=== PATIENT | female | born 1955 | race Hispanic/Latino ===

== ENCOUNTER 2020-01-03 13:15 | Emergency (ER) | payer SELFPAY ==
[~2020-01-03] VITALS: Ht 149.9 cm; Wt 77.6 kg
[2020-01-03] MEDS ORDERED: SODIUM CHLORIDE 0.9% 1000ML 1,000 ML IV STA (13:40)
[2020-01-03] MEDS ORDERED: MORPHINE SULFATE INJ 4 MG/ML INJ 1ML IV STA (13:40)
[2020-01-03] MEDS ORDERED: ONDANSETRON HCL INJ 2MG/ML 2ML 2 MG/ML VIAL IV STA (13:40)
[2020-01-03 14:18] LABS: BASOPHILS # (AUTO) 0.1 (0.0-0.1); BASOPHILS % 0.7 % (0.0-1.0); EOSINOPHILS # (AUTO) 0.2 (0.0-0.4); EOSINOPHILS % 1.8 % (0.0-6.0); HEMATOCRIT 42.4 % (34.2-44.1); HEMOGLOBIN 14.2 g/dL (12.0-16.0); LYMPHOCYTES # (AUTO) 1.9 (1.0-3.2); LYMPHOCYTES % 20.3 % (18.0-39.1); MEAN CORPUSCULAR HEMOGLOBIN 30.6 pg (28-32); MEAN CORPUSCULAR HGB CONC 33.5 g/dL (31-35); MEAN CORPUSCULAR VOLUME 91.4 fL (81-99); MONOCYTES # (AUTO) 0.6 (0.2-0.8); MONOCYTES % 6.2 % (4.4-11.3); NEUTROPHILS # (AUTO) 6.7 (2.1-6.9); NEUTROPHILS % 70.6 % (38.7-80.0); PLATELET COUNT 243 x10e3/uL (140-360); RED BLOOD COUNT 4.64 x10e6/uL (3.6-5.1)
[2020-01-03 14:24] LABS: BILIRUBIN,URINE NEGATIVE (NEGATIVE); CLARITY,URINE SL CLOUDY (CLEAR); COLOR,URINE YELLOW (YELLOW); KETONES,URINE NEGATIVE (NEGATIVE); LEUKOCYTE ESTERASE ,URINE NEGATIVE (NEGATIVE); NITRITE,URINE NEGATIVE (NEGATIVE); PROTEIN,URINE DIPSTICK NEGATIVE (NEGATIVE); URINE UROBILINOGEN 0.2 mg/dL (0.2 - 1)
[2020-01-03 14:32] LABS: INR 0.79; PROTHROMBIN TIME 11.4 seconds (11.9-14.5)
[2020-01-03 14:33] LABS: ALANINE AMINOTRANSFERASE 43 IU/L (0-55); ALBUMIN 3.9 g/dL (3.5-5.0); ALKALINE PHOSPHATASE 96 IU/L (40-150); ANION GAP 14.9 mmol/L (8-16); BLOOD UREA NITROGEN 13 mg/dL (7-26); BUN/CREATININE RATIO 16 (6-25); CALCIUM 9.8 mg/dL (8.4-10.2); CARBON DIOXIDE 26 mmol/L (22-29); CHLORIDE 102 mmol/L (98-107); CREATINE KINASE 105 IU/L (29-168); CREATININE, SERUM 0.83 mg/dL (0.57-1.11); EST GLOMERULAR FILTRATION RATE > 60 ML/MIN (60-); GLUCOSE 232 mg/dL (74-118); POTASSIUM 3.9 mmol/L (3.5-5.1); SODIUM 139 mmol/L (136-145)
[2020-01-03 14:36] LABS: PARTIAL THROMBOPLASTIN TIME 22.3 seconds (23.8-35.5)
[2020-01-03] MEDS ORDERED: DIATRIZOATE MEGL/DIATRIZOA SOD 30 ML BTL PO ONE (14:39)
[2020-01-03 14:41] LABS: BACTERIA,URINE MODERATE /HPF; EPITHELIAL CELLS,URINE MANY /LPF; TRANSITIONAL EPI CELLS,URINE FEW; WBC,URINE (MAN) 0-5 /HPF (0-5)
--- NOTE | 2020-01-03 15:44 | Emergency Department Note ---
History of Present Illnes History of Present Illness Chief Complaint: Abdominal Complaints History of Present Illness This is a 64 year old female PATIENT WENT TO URGENT CARE WITH COMPLAINTS OF RIGHT LOWER ABDOMINAL PAIN OFF AND ON X 3 DAYS, TOLD TO GO TO ER, PAIN WORSE TODAY; DENIES NAUSEA, VOMITING, OR DIARRHEA. PATIENT APPEARS UNCOMFORTABLE, RATES PAIN 6/10. 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 Any updates have been documented here. Past Medical History Recent Fever: No Clinical Suspicion of Infectio: No New/Unexplained Change in Ment: No Past Medical History: Hypertension Past Surgical History: Cholecysctectomy Social History Smoking Cessation: Never Smoker Counseling Performed: No Alcohol Use: None Any Illegal Drug Use: No Physically hurt or threatened: No Other Any Pre-Existing Lines (PICC,: No Review of Systems Review of Systems Constitutional: Reports no symptoms EENTM: Reports no symptoms Cardiovascular: Reports no symptoms Respiratory: Reports no symptoms Gastrointestinal: Reports as per HPI Genitourinary: Reports no symptoms Musculoskeletal: Reports no symptoms Integumentary: Reports no symptoms Neurological: Reports no symptoms Psychological: Reports no symptoms Endocrine: Reports no symptoms Hematological/Lymphatic: Reports no symptoms Physical Exam Related Data Allergies: Coded Allergies: No Known Allergies (Unverified , 01/03/20) Triage Vital Signs Vital Signs Date Time Temp Pulse Resp B/P (MAP) Pulse Ox O2 Delivery O2 Flow Rate FiO2 01/03/20 13:29 98.3 88 18 138/67 100 Room Air Vital signs reviewed: Yes Physical Exam CONSTITUTIONAL Constitutional: Present well-developed, Present well-nourished, Present obese HENT HENT: Present normocephalic, Present atraumatic, Present oropharynx clear/moist, Present nose normal HENT L/R: Present left ext ear normal, Present right ext ear normal EYES Eyes: Reports PERRL, Reports conjunctivae normal NECK Neck: Present ROM normal PULMONARY Pulmonary: Present effort normal, Present breath sounds normal CARDIOVASCULAR Cardiovascular: Present regular rhythm, Present heart sounds normal, Present capillary refill normal, Present normal rate GASTROINTESTINAL Abdominal: Present soft, Present bowel sounds normal, Present tender (MODERATE TENDERNESS RLQ WITHOUT R/G) GENITOURINARY Genitourinary: Present exam deferred SKIN Skin: Present warm, Present dry MUSCULOSKELETAL Musculoskeletal: Present ROM normal NEUROLOGICAL Neurological: Present alert, Present oriented x 3, Present no gross motor or sensory deficits PSYCHOLOGICAL Psychological: Present mood/affect normal, Present judgement normal Results Laboratory Result Diagram: 01/03/20 1340 01/03/20 1340 Laboratory Laboratory Tests Test 01/03/20 13:40 White Blood Count 9.45 x10e3/uL (4.8-10.8) Red Blood Count 4.64 x10e6/uL (3.6-5.1) Hemoglobin 14.2 g/dL (12.0-16.0) Hematocrit 42.4 % (34.2-44.1) Mean Corpuscular Volume 91.4 fL (81-99) Mean Corpuscular Hemoglobin 30.6 pg (28-32) Mean Corpuscular Hemoglobin Concent 33.5 g/dL (31-35) Red Cell Distribution Width 13.0 % (11.7-14.4) Platelet Count 243 x10e3/uL (140-360) Neutrophils (%) (Auto) 70.6 % (38.7-80.0) Lymphocytes (%) (Auto) 20.3 % (18.0-39.1) Monocytes (%) (Auto) 6.2 % (4.4-11.3) Eosinophils (%) (Auto) 1.8 % (0.0-6.0) Basophils (%) (Auto) 0.7 % (0.0-1.0) Neutrophils # (Auto) 6.7 (2.1-6.9) Lymphocytes # (Auto) 1.9 (1.0-3.2) Monocytes # (Auto) 0.6 (0.2-0.8) Eosinophils # (Auto) 0.2 (0.0-0.4) Basophils # (Auto) 0.1 (0.0-0.1) Absolute Immature Granulocyte (auto 0.04 x10e3/uL (0-0.1) Prothrombin Time 11.4 seconds (11.9-14.5) Prothromb Time International Ratio 0.79 Activated Partial Thromboplast Time 22.3 seconds (23.8-35.5) Urine Color Yellow (YELLOW) Urine Clarity Sl cloudy (CLEAR) Urine pH 5.5 (5 - 7) Urine Specific [place] 1.025 (1.010-1.025) Urine Protein Negative (NEGATIVE) Urine Glucose (UA) 1+ (NEGATIVE) Urine Ketones Negative (NEGATIVE) Urine Blood Negative (NEGATIVE) Urine Nitrite Negative (NEGATIVE) Urine Bilirubin Negative (NEGATIVE) Urine Urobilinogen 0.2 mg/dL (0.2 - 1) Urine Leukocyte Esterase Negative (NEGATIVE) Urine RBC None /HPF (0-5) Urine WBC 0-5 /HPF (0-5) Urine Epithelial Cells Many /LPF (NONE) Urine Transitional Epithelial Cells Few (NONE) Urine Bacteria Moderate /HPF (NONE) Sodium Level 139 mmol/L (136-145) Potassium Level 3.9 mmol/L (3.5-5.1) Chloride Level 102 mmol/L (98-107) Carbon Dioxide Level 26 mmol/L (22-29) Anion Gap 14.9 mmol/L (8-16) Blood Urea Nitrogen 13 mg/dL (7-26) Creatinine 0.83 mg/dL (0.57-1.11) Estimat Glomerular Filtration Rate > 60 ML/MIN (60-) BUN/Creatinine Ratio 16 (6-25) Glucose Level 232 mg/dL (74-118) Calcium Level 9.8 mg/dL (8.4-10.2) Total Bilirubin 0.5 mg/dL (0.2-1.2) Aspartate Amino Transf (AST/SGOT) 30 IU/L (5-34) Alanine Aminotransferase (ALT/SGPT) 43 IU/L (0-55) Alkaline Phosphatase 96 IU/L (40-150) Creatine Kinase 105 IU/L (29-168) Creatine Kinase MB 1.20 ng/mL (0-5.0) Troponin I < 0.001 ng/mL (0-0.300) Total Protein 7.9 g/dL (6.5-8.1) Albumin 3.9 g/dL (3.5-5.0) Globulin 4.0 g/dL (2.3-3.5) Albumin/Globulin Ratio 1.0 (0.8-2.0) Lab results reviewed: Yes Imaging Imaging results reviewed: Yes Assessment & Plan Medical Decision Making MDM CHECK CBC, CHEM, CARDIACS, UA/CX, CT ABD/PELVIS - R/O APPENDICITIS, KIDNEY STONE, DIVERTICULITIS, SBO, CONSTIPATION, RENAL INSUFF, ELECTROLYTE ABNL, UTI Reassessment Reassessment PT IMPROVED, CT NEGATIVE, DC HOME, F/U PCP Assessment & Plan Final Impression: (1) Abdominal pain Depart Disposition: HOME, SELF-CARE Last Vital Signs Date Time Temp Pulse Resp B/P (MAP) Pulse Ox O2 Delivery O2 Flow Rate FiO2 01/03/20 13:29 98.3 88 18 138/67 100 Room Air Medications in the ED Morphine Sulfate 4 mg ONCE STAT IV ; Start 01/03/20 at 13:40; Stop 01/03/20 at 13:54; Status DC Ondansetron HCl 4 mg ONCE STAT IV ; Start 01/03/20 at 13:40; Stop 01/03/20 at 13:54; Status DC Sodium Chloride 1,000 ml @ 0 mls/hr Q0M STAT IV ; Start 01/03/20 at 13:40; Stop 01/03/20 at 13:43; Status DC Diatrizoate Meglum/ Diatrizoate Sod 30 ml STK-MED ONCE PO ; Start 01/03/20 at 14:39; Stop 01/03/20 at 14:32; Status DC SUSANA VALLEJO MD Jan 03, 2020 15:44
--- NOTE | 2020-01-03 15:52 | Diagnostic Imaging Report ---
EXAM: CT Abdomen and Pelvis WITH intravenous contrast INDICATION: Abdominal pain COMPARISON: None. TECHNIQUE: Abdomen and pelvis were scanned utilizing a multidetector helical scanner from the lung base to the pubic symphysis after administration of IV contrast. Coronal and sagittal reformations were obtained. Routine protocol was performed. Scan was performed during portal venous phase. IV CONTRAST: 100mL of Isovue 370 ORAL CONTRAST: Gastrografin RADIATION DOSE: Total DLP: 671 mGy*cm Dose modulation, iterative reconstruction, and/or weight based adjustment of the mA/kV was utilized to reduce the radiation dose to as low as reasonably achievable. FINDINGS: LOWER THORAX: Normal. HEPATOBILIARY: Diffuse hepatic steatosis. No focal hepatic lesions. No biliary ductal dilatation. Status post cholecystectomy. SPLEEN: No splenomegaly. PANCREAS: No focal masses or ductal dilatation. ADRENALS: No adrenal nodules. KIDNEYS/URETERS: No hydronephrosis, stones, or solid mass lesions. PELVIC ORGANS/BLADDER: Unremarkable. PERITONEUM / RETROPERITONEUM: No free air or fluid. LYMPH NODES: No lymphadenopathy. VESSELS: Mild scattered atherosclerotic calcifications. GI TRACT: Diverticulosis without CT evidence of diverticulitis. No abnormal bowel thickening. No bowel obstruction. Normal appendix. BONES AND SOFT TISSUES: No acute osseous injury. IMPRESSION: No acute findings in the abdomen or pelvis. Specifically, normal appendix. Diffuse hepatic steatosis. Signed by: Gayathri Jimenez MD on 01/03/2020 3:48 PM
[2020-01-03] MEDS ORDERED: SODIUM CHLORIDE 0.9% 50ML 50 ML ONE (16:13)
[2020-01-03] MEDS ORDERED: IOPAMIDOL 370 MG/ML 200 ML INFUS..BTL INJ ONE (16:13)
[2020-01-03 17:07] VITALS: BP 110/65
--- OUTSIDE RECORDS SUMMARY | 2020-01-20 11:23 | XMS REPORT | Continuity of Care Document ---
Author Author [facility] t Organization [facility] Address [address] [place] [address] Phone Unavailable Care Team Providers Care Wheel And Caster Repairer Name Role Phone NONSTAFF PCP Unavailable SWEET, A LAIRD Attphys Unavailable Payers Payer Name Policy Type Policy Number Effective Date Expiration Date S ource Problems Condition Name Condition Details Condition Category Status Onset Date Resolution Date Last Treatment Date Treating Clinician Comments Source Essential hypertension, benign Essential hypertension, benign Disea se Active 2017-04-01 00:00:00 [facility]alth Refused influenza vaccine Refused influenza vaccine Disease Ac tive 2017-04-01 00:00:00 [facility] Borderline diabetes Borderline diabetes Disease Active 2017-04-01 00:00 :00 [facility] Problem Condition Active [facility] Allergies, Adverse Reactions, Alerts Allergy Name Allergy Type Status Severity Reaction(s) Onset Date Inacti ve Date Treating Clinician Comments Source No Known Allergies DA Active U 2018-04-18 00:00:00 [facility] No Known Allergies DA Active U 2016-12-25 00:00:00 [facility] Social History Social Habit Start Date Stop Date Quantity Comments Source Sex Assigned At [facility] Alcohol intake 2018-11-24 00:00:00 2018-11-24 00:00:00 Current drinker of alcohol (finding) [facility] History SDOH Food Worry 2017-04-01 00:00:00 2017-04-01 00:00:00 1 [facility] History SDOH Food Scarcity 2017-04-01 00:00:00 2017-04-01 00:00:00 1 [facility] Alcohol Comment 2017-04-01 00:00:00 2017-04-01 00:00:00 2 or 3 B udlights only when goes out [facility] Smoking Status Start Date Stop Date Source Never smoker [facility] Medications Ordered Medication Name Filled Medication Name Start Date Stop Da te Current Medication? Ordering Clinician Indication Dosage Frequency Signature (SIG) Comments Components Source glipiZIDE (GLUCOTROL) 5 mg tablet 2017-04-01 00:00:00 Yes Borderline diabetes 5mg Q.5D Take 1 tablet by mouth 2 times daily (before me als). [facility] lisinopril-hydrochlorothiazide (ZESTORETIC) 20-12.5 mg per t ablet 2017-04-01 00:00:00 Yes Essential hypertension, benign 1{tbl} QD Take 1 tablet by mouth daily. [facility] ibuprofen (MOTRIN) 600 mg tablet 2017-04-01 00:00:00 Yes 600mg Take 1 tablet by mouth every 8 hours as needed for Pain. [facility] Immunizations Ordered Immunization Name Filled Immunization Name Date Status Comments Source Tdap (Tetanus Toxoid, Reduced Diphtheria Toxoid And Acellular Pertussis, Absorbed) 2017-04-01 00:00:00 Completed [facility] Vital Signs Vital Name Observation Time Observation Value Comments Source Body Temperature 2020-01-03 17:07:00 98.4 [degF] [facility] Weight 2020-01-03 13:29:00 171 [lb_av] [facility] BMI (Body Mass Index) 2020-01-03 13:29:00 34.5 kg/m2 [facility] Procedures Procedure Date / Time Performed Performing Clinician Pio e Computed tomography of abdomen and pelvis with contrast 00:00:00 [facility] Plan of Care Planned Activity Planned Date Details Comments Source Future Scheduled Test 2020-03-22 00:00:00 IMM Influenza Seas onal Mar to August (>/= 19 yrs) [code = IMM Influenza Seasonal Mar to August (>/= 19 yrs)] [facility] Future Scheduled Test 2018-04-24 00:00:00 Breast Cancer Scrn (Yearly) [code = Breast Cancer Scrn (Yearly)] [facility] Scheduled Test 2018-04-03 00:00:00 Screening for derrek gnant neoplasm of colon (procedure) [code = 926736346] [facility] Scheduled Test 1978 00:00:00 Screening for derrek gnant neoplasm of cervix (procedure) [code = 288289105] [facility] Abdominal Pain - Adult [facility] Encounters Start Date/Time End Date/Time Encounter Type Admission Type [facility] Care Department Encounter ID Source 2020-01-03 13:44:00 2020-01-03 17:10:00 Departed Emergency Room 1 SUSANA VALLEJO [facility] [id number] [facility] 2017-04-24 11:12:13 2017-04-24 11:12:[address] [facility] [id number] [facility] 2017-04-23 00:00:00 2017-04-23 00:00:[address] [facility] [id number] [facility] 2017-04-13 00:00:00 2017-04-13 00:00:[address] [facility] [id number] [facility] 2017-04-08 00:00:00 2017-04-08 00:00:[address] [facility] [id number] [facility] 2017-04-03 08:55:57 2017-04-03 08:55:[address] [facility] [id number] [facility] 2017-04-01 13:23:23 2017-04-01 13:23:[address] [facility] [id number] [facility] Results Test Description Test Time Test Comments Results Result Comments Source CT ABDOMEN/PELVIS W 2020-01-03 15:46:00 [facility] [address] [place] [address] Patient Name: LOURDES KHAN MR #: [id number] : 1955 Age/Sex: 64/F Req #: [id number] Adm Physician: Ordered by: SUSANA VALLEJO MD Report #: [id number] Location: ER Room/Bed: Procedure: [id number] CT/CT ABDOMEN/PELVIS W Exam Date: 01/03/20 Exam Time: 1510 REPORT STATUS: Signed EXAM: CT Abdomen and Pelvis WITH intravenous contrast INDICATION: Abdominal pain COMPARISON: None. TECHNIQUE: Abdomen and pelvis were scanned utilizing a multidetector helical scanner from the lung base to the pubic symphysis after administration of IV contrast. Coronal and sagittal reformations were obtained. Routine protocol was performed. Scan was performed during portal venous phase. IV CONTRAST: 100mL of Isovue 370 ORAL CONTRAST: Gastrografin RADIATION DOSE: Total DLP: 671 mGy*cm Dose modulation, iterative reconstruction, and/or weight based adjustment of the mA/kV was utilized to reduce the radiation dose to as low as reasonably achievable. FINDINGS: LOWER THORAX: Normal. HEPATOBILIARY: Diffuse hepatic steatosis. No focal hepatic lesions. No biliary ductal dilatation. Status post cholecystectomy. SPLEEN: No splenomegaly. PANCREAS: No focal masses or ductal dilatation. ADRENALS: No adrenal nodules. KIDNEYS/URETERS: No hydronephrosis, stones, or solid mass lesions. PELVIC ORGANS/BLADDER: Unremarkable. PERITONEUM / RETROPERITONEUM: No free air or fluid. LYMPH NODES: No lymphadenopathy. VESSELS: Mild scattered atherosclerotic calcifications. GI TRACT: D iverticulosis without CT evidence of diverticulitis. No abnormal bowel thickening. No bowel obstruction. Normal appendix. BONES AND SOFT TISSUES: No acute osseous injury. IMPRESSION: No acute findings in the abdomen or pelvis. Specifically, normal appendix. Diffuse hepatic steatosis. Signed by: Myrtle Jimenez MD on 01/03/2020 3:48 PM Dictated By: MYRTLE JIMENEZ MD [id number] Transcribed By: NATHAN on 01/03/201547 COPY TO: SUSANA VALLEJO MD Blood leukocytes automated count (number/volume) 2020-01-03 13:40:00 Test Item White Blood Count (test code = 6690-2) 9.45 4.8-10.8 [facility] erythrocytes automated count (number/volume)2020-01-03 13:40:00* Test Item Value Reference Range Interpretation Comments Red Blood Count (test code = 789-8) 4.64 3.6-5.1 [facility] hemoglobin measurement (moles/volume)2020-01-03 13:40:00* Test Item Value Reference Range Interpretation Comments Hemoglobin (test code = 25555-8) 14.2 12.0-16.0 [facility] HospitalAutomated blood hematocrit (volume fraction)2020-01-03 13:40:00* Test Item Value Reference Range Interpretation Comments Hematocrit (test code = 4544-3) 42.4 34.2-44.1 [facility] HospitalAutunc health nashed erythrocyte mean corpuscular [id number] 13:40:00* Test Item Value Reference Range Interpretation Comments Mean Corpuscular Volume (test code = 787-2) 91.4 81-99 [facility] HospitalAutomated erythrocyte mean corpuscular hemoglobin (mass per erythrocyte)2020-01-03 13:40:00* Test Item Value Reference Range Interpretation Comments Mean Corpuscular Hemoglobin (test code = 785-6) 30.6 28-32 [facility] HospitalAut[facility] health nashed erythrocyte mean corpuscular hemoglobin concentration measurement (mass/volume)2020-01-03 13:40:00* Test Item Value Reference Range Interpretation Comments Mean Corpuscular Hemoglobin Concent (test code = 786-4) 33.5 31-35 [facility] HospitalRDW TchPm-[id number] 13:40:00* Test Item Value Reference Range Interpretation Comments Red Cell Distribution Width (test code = 41521-8) 13.0 11.7 -14.4 [facility] HospitalAut[facility] health nashed blood platelet count (count/volume)2020-01-03 13:40:00* Test Item Value Reference Range Interpretation Comments Platelet Count (test code = 777-3) 243 140-360 [facility] HospitalAutomated blood segmented neutrophil count as percentage of total sinuevnryk5928-65-93 13:40:00* Test Item Value Reference Range Interpretation Comments Neutrophils (%) (Auto) (test code = 94260-1) 70.6 38.7-80.0 [facility] HospitalAutomated blood lymphocyte count as percentage ot total obuyixrsuy0768-15-81 13:40:00* Test Item Value Reference Range Interpretation Comments Lymphocytes (%) (Auto) (test code = 736-9) 20.3 18.0-39.1 [facility] HospitalAutomated blood monocyte count as percentage of total yznqvnhuum3381-35-17 13:40:00* Test Item Value Reference Range Interpretation Comments Monocytes (%) (Auto) (test code = 5905-5) 6.2 4.4-11.3 [facility] HospitalAut[facility] health nashed blood eosinophil count as percentage of total echmbkvmtp2197-78-69 13:40:00* Test Item Value Reference Range Interpretation Comments Eosinophils (%) (Auto) (test code = 713-8) 1.8 0.0-6.0 [facility] HospitalAutomated blood basophil count as percentage of total ukebexjqqj5320-59-32 13:40:00* Test Item Value Reference Range Interpretation Comments Basophils (%) (Auto) (test code = 706-2) 0.7 0.0-1.0 [facility] HospitalFluoroscopic procedure less than one hour sjxeltmj2683-94-15 13:40:00* Test Item Value Reference Range Interpretation Comments IM GRANULOCYTES % (test code = IM GRANULOCYTES %) 0.4 0.0- 1.0 [facility] HospitalAutomated blood neutrophil count 2020-01-03 13:40:00* Test Item Value Reference Range Interpretation Comments Neutrophils # (Auto) (test code = 751-8) 6.7 2.1-6.9 [facility] lymphocytes count (number/volume) 2020-01-03 13:40:00* Test Item Value Reference Range Interpretation Comments Lymphocytes # (Auto) (test code = 23635-0) 1.9 1.0-3.[address] [facility] automated count (number/volume)2020-01-03 13:40:00* Test Item Value Reference Range Interpretation Comments Monocytes # (Auto) (test code = 742-7) 0.6 0.2-0.8 [facility] HospitalAutomated blood eosinophil count 2020-01-03 13:40:00* Test Item Value Reference Range Interpretation Comments Eosinophils # (Auto) (test code = 711-2) 0.2 0.0-0.4 [facility] HospitalAutomated blood basophil count (count/volume)2020-01-03 13:40:00* Test Item Value Reference Range Interpretation Comments Basophils # (Auto) (test code = 704-7) 0.1 0.0-0.1 [facility] HospitalFluoroscopic procedure less than one hour [id number] 13:40:00* Test Item Value Reference Range Interpretation Comments Absolute Immature Granulocyte (auto (michael t code = Absolute Immature Granulocyte (auto) 0.04 0-0.1 [facility] HospitalProthrombin time (PT) in platelet poor plasma by coagulation [id number] 13:40:00* Test Item Value Reference Range Interpretation Comments Prothrombin Time (test code = 5902-2) 11.4 11.9-14.5 [facility] HospitalINR in Platelet poor plasma by Coagulation dqauc1407-15-67 13:40:00* Test Item Value Reference Range Interpretation Comments Prothromb Time International Ratio (test code = 6301-6) 0.79 Oral Anticoagulant Therapy INR Values:1. Low Intensity Therapy 1.5 - 2.02 . Moderate Intensity Therapy 2.0 - 3.03. High Intensity Therapy(1) 2.5 - 3. 54. High Intensity Therapy(2) 3.0 - 4.05. Panic Value INR > 5.0 [facility] HospitalActivated partial thromboplastin time (aPTT) in platelet poor plasma by coagulation igwid7145-11-78 13:40:00* Test Item Value Reference Range Interpretation Comments Activated Partial Thromboplast Time (test code = 28128-7) 22.3 23.8-35.[address] [facility] HospitalUrine color phsimtwvvwjbq9649-58-99 13:40:00* Test Item Value Reference Range Interpretation Comments Urine Color (test code = 5778-6) YELLOW YELLOW [facility] HospitalUrine lnibojr5841-65-10 13:40:00* Test Item Value Reference Range Interpretation Comments Urine Clarity (test code = 31195-5) SL CLOUDY CLEAR [facility] Districtpecific gravity of Urine by Test strip 2020-01-03 13:40:00* Test Item Value Reference Range Interpretation Comments Urine Specific [place] (test code = 5811-5) 1.025 1.010-1.[address] [facility] HospitalUrine pH measurement by automated test [id number] 13:40:00* Test Item Value Reference Range Interpretation Comments Urine pH (test code = 98071-1) 5.5 5-7 [facility] HospitalUrine leukocyte esterase detection by eyqfqbod5178-80-23 13:40:00* Test Item Value Reference Range Interpretation Comments Urine Leukocyte Esterase (test code = 5799-2) NEGATIVE NEGATIVE [facility] HospitalUrine nitrite lvsfdztzn8168-29-02 13:40:00* Test Item Value Reference Range Interpretation Comments Urine Nitrite (test code = 64866-5) NEGATIVE NEGATIVE [facility] HospitalUrine protein measurement by test strip (mass/volume)2020-01-03 13:40:00* Test Item Value Reference Range Interpretation Comments Urine Protein (test code = 5804-0) NEGATIVE NEGATIVE [facility] HospitalUrine glucose dtrrrpnkg3085-16-10 13:40:00* Test Item Value Reference Range Interpretation Comments Urine Glucose (UA) (test code = 2349-9) 1+ NEGATIVE [facility] HospitalUrine ketones detection by automated test dqvbc5240-06-98 13:40:00* Test Item Value Reference Range Interpretation Comments Urine Ketones (test code = 09503-1) NEGATIVE NEGATIVE [facility] HospitalUrine urobilinogen measurement by test strip (mass/volume)2020-01-03 13:40:00* Test Item Value Reference Range Interpretation Comments Urine Urobilinogen (test code = 22357-7) 0.2 0.2-1 [facility] HospitalUrine total bilirubin measurement (mass/volume)2020-01-03 13:40:00* Test Item Value Reference Range Interpretation Comments Urine Bilirubin (test code = 1978-6) NEGATIVE NEGATIVE [facility] HospitalUrine erythrocytes iflkvnzol9462-34-05 13:40:00* Test Item Value Reference Range Interpretation Comments Urine Blood (test code = 21997-5) NEGATIVE NEGATIVE [facility] HospitalAutomated urine sediment leukocyte count by microscopy (number/high power field)2020-01-03 13:40:00* Test Item Value Reference Range Interpretation Comments Urine WBC (test code = 5821-4) 0-5 0-5 [facility] HospitalErythrocytes detection in urine sediment by light rsypioxpls0947-40-63 13:40:00* Test Item Value Reference Range Interpretation Comments Urine RBC (test code = 38950-9) NONE 0-5 [facility] HospitalBacteria detection in urine sediment by light uamerkydkz7254-81-28 13:40:00* Test Item Value Reference Range Interpretation Comments Urine Bacteria (test code = 62251-9) MODERATE NONE [facility] HospitalEpithelial cells detection in urine sediment by light bvoqxsvitr5119-90-82 13:40:00* Test Item Value Reference Range Interpretation Comments Urine Epithelial Cells (test code = 19850-3) MANY NONE [facility] HospitalTransitional cells detection in urine sediment by light cnvvtaxbmp5254-71-13 13:40:00* Test Item Value Reference Range Interpretation Comments Urine Transitional Epithelial Cells (test code = 8249-5) FEW NONE [facility] Districterum or plasma sodium measurement (moles/volume)2020-01-03 13:40:00* Test Item Value Reference Range Interpretation Comments Sodium Level (test code = 2951-2) 139 136-145 [facility] Districterum or plasma potassium measurement (moles/volume)2020-01-03 13:40:00* Test Item Value Reference Range Interpretation Comments Potassium Level (test code = 2823-3) 3.9 3.5-5.1 [facility] Districterum or plasma chloride measurement (moles/volume)2020-01-03 13:40:00* Test Item Value Reference Range Interpretation Comments Chloride Level (test code = 2075-0) 102 98-107 [facility] Districterum or plasma carbon dioxide, total measurement (moles/volume)2020-01-03 13:40:00* Test Item Value Reference Range Interpretation Comments Carbon Dioxide Level (test code = 2028-9) 26 22-29 [facility] Districterum or plasma anion jaw7425-84-64 13:40:00* Test Item Value Reference Range Interpretation Comments Anion Gap (test code = 80880-0) 14.9 8-16 [facility] Districterum or plasma urea nitrogen measurement (mass/volume)2020-01-03 13:40:00* Test Item Value Reference Range Interpretation Comments Blood Urea Nitrogen (test code = 3094-0) 13 7-26 [facility] Districterum or plasma creatinine measurement (mass/volume)2020-01-03 13:40:00* Test Item Value Reference Range Interpretation Comments Creatinine (test code = 2160-0) 0.83 0.57-1.11 [facility] Districterum or plasma urea nitrogen/creatinine mass pefua1205-79-26 13:40:00* Test Item Value Reference Range Interpretation Comments BUN/Creatinine Ratio (test code = 3097-3) 16 6-25 [facility] HospitalEstimated glomerular filtration rate (GFR) sqxgdpkalypbs1578-56-47 13:40:00* Test Item Value Reference Range Interpretation Comments Estimat Glomerular Filtration Rate (test code = 382602734) > 60 >60 Ranges were taken from the National Kidney Disease Education Program and the Camryn replaced by [facility] [employer] literature.Reference ranges:60 or greater: Plwvqv58-20 ( for 3 consecutive months): Chronic kidney disease 15 or less: Kidney failureSt. Luke's Health – The Woodlands HospitalGlucose urlsdhwegdu6478-18-62 13:40:00* Test Item Value Reference Range Interpretation Comments Glucose Level (test code = QUL3176) 232 74-118 [facility] Districterum or plasma calcium measurement (mass/volume)2020-01-03 13:40:00* Test Item Value Reference Range Interpretation Comments Calcium Level (test code = 92629-3) 9.8 8.4-10.2 [facility] Districterum or plasma total bilirubin measurement (mass/volume)2020-01-03 13:40:00* Test Item Value Reference Range Interpretation Comments Total Bilirubin (test code = 1975-2) 0.5 0.2-1.2 [facility] HospitalFluoroscopic procedure less than one hour zmkoeelt2270-72-30 13:40:00* Test Item Value Reference Range Interpretation Comments Aspartate Amino Transf (AST/SGOT) (test code = Aspartate Amino Transf (AST/SGOT)) 30 5-34 [facility] Districterum or plasma alanine aminotransferase measurement (enzymatic activity/volume)2020-01-03 13:40:00* Test Item Value Reference Range Interpretation Comments Alanine Aminotransferase (ALT/SGPT) (test code = 1742-6) 43 0-55 [facility] Districterum or plasma protein measurement (mass/volume)2020-01-03 13:40:00* Test Item Value Reference Range Interpretation Comments Total Protein (test code = 2885-2) 7.9 6.5-8.1 [facility] Districterum or plasma albumin measurement (mass/volume)2020-01-03 13:40:00* Test Item Value Reference Range Interpretation Comments Albumin (test code = 1751-7) 3.9 3.5-5.0 [facility] HospitalPlasma globulin measurement (mass/volume) 2020-01-03 13:40:00* Test Item Value Reference Range Interpretation Comments Globulin (test code = 31897-2) 4.0 2.3-3.5 [facility] Districterum or plasma albumin/globulin mass [id number] 13:40:00* Test Item Value Reference Range Interpretation Comments Albumin/Globulin Ratio (test code = 1759-0) 1.0 0.8-2.0 [facility] Districterum or plasma alkaline phosphatase measurement (enzymatic activity/volume)2020-01-03 13:40:00* Test Item Value Reference Range Interpretation Comments Alkaline Phosphatase (test code = 6768-6) 96 40-150 [facility] Districterum or plasma creatine kinase measurement (enzymatic activity/volume)2020-01-03 13:40:00* Test Item Value Reference Range Interpretation Comments Creatine Kinase (test code = 2157-6) 105 29-168 [facility] Districterum or plasma creatine kinase MB measurement (mass/volume)2020-01-03 13:40:00* Test Item Value Reference Range Interpretation Comments Creatine Kinase MB (test code = 04395-4) 1.20 0-5.0 [facility] HospitalTroponin I measurement by highly sensitive enzyme wenfeehnyqd2246-90-10 13:40:00* Test Item Value Reference Range Interpretation Comments Troponin I (test code = 75722-5) < 0.001 0-0.300 [facility]
--- OUTSIDE RECORDS SUMMARY | 2020-01-20 11:23 | XMS REPORT | Clinical Summary ---
Author Author [facility] Organization [facility] Address Unknown Phone Unavailable Care Team Providers Care Medical Science Liaison Name Role Phone PCP Unavailable Allergies No Known Allergies Medications End Date Status Medication Sig Dispensed Refills Start Date Active glipiZIDE (GLUCOTROL) 5 Take 1 tablet 0 mg tabletIndications: by mouth 2 7 Borderline diabetes times daily (before meals). Active lisinopril-hydrochlorothi Take 1 tablet 90 tablet 1 azide (ZESTORETIC) by mouth 7 20-12.5 mg per daily. tabletIndications: Essential hypertension, benign Active ibuprofen (MOTRIN) 600 mg Take 1 tablet 30 tablet 0 tablet by mouth 7 every 8 hours as needed for Pain. Active Problems Problem Noted Date Essential hypertension, benign 04/01/2017 Refused influenza vaccine 04/01/2017 Borderline diabetes 04/01/2017 Immunizations Name Administration Dates Next Due Tdap (Tetanus Toxoid, 04/01/2017 Reduced Diphtheria Toxoid And Acellular Pertussis, Absorbed) Family History Relation Name Status Comments Brother Alive 2 brothers Father heart attack (Age 77) Mother hbp (Age 55) Sister Alive Social History Date Tobacco Use Types Packs/Day Years Used Never Smoker Smokeless Tobacco: Never Used Drinks/Week oz/Week Comments Alcohol Use 2 or 3 Budlights onl y when goes out Yes Food Insecurity Answer Date Recorded Within the past 12 months, you worried that your Never hay e 04/01/2017 food would run out before you got money to buy more. Within the past 12 months, the food you bought Never true 04/01/2017 just didn't last and you didn't have mo terell to get more. Sex Assigned at Date Recorded Not on file Industry Job Start Date Occupation Not on file Not on file Not on file Travel End Travel History Travel Start No recent travel history available. Last Filed Vital Signs Not on file Plan of Treatment Health Maintenance Due Date Last Done Comments Cervical Cancer Scrn (3 1978 Yrs) Colorectal Cancer Scrn 04/03/2018 04/03/2017 Annual (FIT/FOBT) Age 50 to 75 Breast Cancer Scrn 04/24/2018 04/24/2017 (Yearly) IMM Influenza Seasonal 03/22/2020Mar to August (>/= 19 yrs) Results Not on fileafter 01/02/2019
== END 2020-01-03 17:10 | disposition home or self-care (01) ==
LOC: ER 13:44
DX: R10.31 Right lower quadrant pain (principal); I10 Essential (primary) hypertension
CPT/HCPCS: 36415; 74177; 80053; 81001; 82550; 82553; 84484; 85025; 85610; 85730; 87086; 99284; J2270; J2405; J7030; Q9967

== ENCOUNTER 2022-07-13 06:40 | Emergency (ER) | payer BC ==
[~2022-07-13] VITALS: Ht 149.9 cm; Wt 77.6 kg
[2022-07-13] MEDS ORDERED: IBUPROFEN 600 MG TAB PO STA (06:56)
== END 2022-07-13 07:05 | disposition home or self-care (01) ==
LOC: ER 06:47
DX: M25.511 Pain in right shoulder (principal); M79.621 Pain in right upper arm; I10 Essential (primary) hypertension
CPT/HCPCS: 99282

== ENCOUNTER 2022-09-22 13:42 | Emergency (ER) | payer BC ==
[~2022-09-22] VITALS: Ht 149.9 cm; Wt 77.6 kg
[2022-09-22] MEDS ORDERED: METHOCARBAMOL750 MG PO (14:50)
[2022-09-22] MEDS ORDERED: ANAPROX DS550 MG PO (14:50)
== END 2022-09-22 15:59 | disposition home or self-care (01) ==
LOC: ER 13:48
DX: M54.12 Radiculopathy, cervical region (principal); I10 Essential (primary) hypertension; E11.9 Type 2 diabetes mellitus without complications; E78.5 Hyperlipidemia, unspecified
CPT/HCPCS: 99282

== ENCOUNTER 2024-10-05 19:27 | Emergency (ER) | payer BC ==
[~2024-10-05] VITALS: Ht 149.9 cm; Wt 68.9 kg
[~2024-10-05 19:27] MED LIST: ANAPROX DS550 MG PO; METHOCARBAMOL750 MG PO
[2024-10-05 19:28] VITALS: TEMP 98.2
[2024-10-05 19:44] LABS: BASOPHILS # (AUTO) 0.1 (0.0-0.1); BASOPHILS % 0.6 % (0.0-1.0); EOSINOPHILS # (AUTO) 0.2 (0.0-0.4); EOSINOPHILS % 1.7 % (0.0-6.0); HEMATOCRIT 40.8 % (34.2-44.1); HEMOGLOBIN 13.9 g/dL (12.0-16.0); LYMPHOCYTES # (AUTO) 2.2 (1.0-3.2); LYMPHOCYTES % 18.3 % (18.0-39.1); MEAN CORPUSCULAR HEMOGLOBIN 32.2 pg (28-32); MEAN CORPUSCULAR HGB CONC 34.1 g/dL (31-35); MEAN CORPUSCULAR VOLUME 94.4 fL (81-99); MONOCYTES # (AUTO) 0.8 (0.2-0.8); MONOCYTES % 7.1 % (4.4-11.3); NEUTROPHILS # (AUTO) 8.5 (2.1-6.9); PLATELET COUNT 244 x10e3/uL (140-360); RED BLOOD COUNT 4.32 x10e6/uL (3.6-5.1); RED CELL DISTRIBUTION WIDTH 13.7 % (11.7-14.4); WHITE BLOOD COUNT 11.81 x10e3/uL (4.8-10.8)
[2024-10-05 20:09] LABS: ALBUMIN 4.3 g/dL (3.5-5.0); ALBUMIN/GLOBULIN RATIO 1.3 (0.8-2.0); ANION GAP 14.7 mmol/L (8-16); BILIRUBIN,TOTAL 0.6 mg/dL (0.2-1.2); CREATININE, SERUM 0.81 mg/dL (0.57-1.11); POTASSIUM 3.7 mmol/L (3.5-5.1); TOTAL PROTEIN 7.5 g/dL (6.5-8.1)
[2024-10-05] MEDS: MAGNESIUM/ALUMINUM/SIMETHICONE 30 ML UDC PO ONE (20:17)
[2024-10-05] MEDS: BELLADONNA ALK/PHENOBARBITAL 5 ML UDC PO ONE (20:17)
[2024-10-05] MEDS: LIDOCAINE VISC 2% SOLN 15 ML UDC PO ONE (20:17)
[2024-10-05] MEDS: ONDANSETRON HCL INJ 2MG/ML 2ML 2 MG/ML VIAL IV STA (20:17)
[2024-10-05 22:00] VITALS: PULSE 68; RESP 18; O2SAT 99
[2024-10-05] MEDS ORDERED: PANTOPRAZOLE SO40 MG PO (22:06)
[2024-10-05] MEDS ORDERED: ONDANSETRON ODT4 MG SL (22:06)
== END 2024-10-05 22:27 | disposition home or self-care (01) ==
LOC: ER 19:33
DX: R10.13 Epigastric pain (principal); I10 Essential (primary) hypertension; E11.9 Type 2 diabetes mellitus without complications; E78.5 Hyperlipidemia, unspecified; R94.31 Abnormal electrocardiogram [ECG] [EKG]
CPT/HCPCS: 36415; 71045; 80053; 83690; 84484; 85025; 93005; 99284; J2405; J2470